=== PATIENT | male | born 1955 | race Caucasian/White ===

== ENCOUNTER 2019-08-19 04:27 | Emergency (ER) | payer MEDICAID, MEDICARE ==
[~2019-08-19] VITALS: Ht 172.7 cm; Wt 100.0 kg
[2019-08-19] MEDS ORDERED: SODIUM CHLORIDE 0.9% 1,000 ML IV ONE (04:38)
[2019-08-19] MEDS ORDERED: LORAZEPAM 2MG/ML CPJ IV ONE (05:15)
[2019-08-19 05:26] LABS: BASOPHILS % 0.9 % (0.0-2.0); EOSINOPHILS % 1.2 % (0.0-5.0); HEMATOCRIT. 40.5 % (42.0-52.0); HEMOGLOBIN. 14.1 g/dL (14.0-18.0); LYMPHOCYTES % 29.7 % (20.0-50.0); MEAN CORPUSCULAR HEMOGLOBIN 34.1 pg (28.0-32.0); MEAN CORPUSCULAR VOLUME 97.9 fL (80.0-94.0); MEAN PLATELET VOLUME 9.3 fl (7.4-10.4); MONOCYTES % 4.9 % (2.0-8.0); NEUTROPHILS % 63.3 % (40.0-76.0); PLATELET 232 x1000/uL (130-400); RED BLOOD CELL COUNT 4.13 mill/uL (4.7-6.1); RED CELL DISTRIBUTION WIDTH 14.8 % (11.6-14.6)
[2019-08-19 05:29] LABS: PROTHROMBIN TIME 10.2 sec (9.6-11.0)
[2019-08-19 05:44] LABS: CHLORIDE 109 mEq/L (98-107)
[2019-08-19 09:19] VITALS: BP 135/81
== END 2019-08-19 09:20 | disposition home or self-care (01) ==
LOC: ER 04:27
DX: F10.239 Alcohol dependence with withdrawal, unspecified (principal); Y90.7 Blood alcohol level of 200-239 mg/100 ml; F17.290 Nicotine dependence, other tobacco product, uncomplicated
CPT/HCPCS: 36415; 80053; 80320; 85025; 85610; 96374; 99283; J2060; J7030; G0480